=== PATIENT | male | born 1990 | race Caucasian/White ===

== ENCOUNTER 2017-10-27 18:00 | Emergency (ER) | payer OTHER ==
[~2017-10-27 18:00] MED LIST: KEFLEX500 MG PO; MOTRIN800 MG PO; NKHM; PREDNICOT20 MG PO; TOBRADEX 0.1%-0.5 ML OPH; ZITHROMAX Z PA250 MG PO
== END 2017-10-27 18:28 | disposition home or self-care (01) ==
LOC: ED 18:00
DX: L98.8 Other specified disorders of the skin and subcutaneous tissue (principal)

== ENCOUNTER 2018-07-31 15:17 | Emergency (ER) | payer OTHER ==
[~2018-07-31] VITALS: Ht 187.9 cm; Wt 136.1 kg
== END 2018-07-31 17:37 | disposition home or self-care (01) ==
LOC: ED 15:17
DX: S39.012A Strain of muscle, fascia and tendon of lower back, initial encounter (principal); M62.830 Muscle spasm of back; Z91.030 Bee allergy status; X58.XXXA Exposure to other specified factors, initial encounter; Y93.89 Activity, other specified; Y92.89 Other specified places as the place of occurrence of the external cause; Y99.8 Other external cause status

== ENCOUNTER 2021-04-12 18:29 | Emergency (ER) | payer SELFPAY ==
[~2021-04-12] VITALS: Wt 87.1 kg
[2021-04-12 18:56] LABS: BASO % 0.3 % (0.0-1.0); EOS % 0.1 % (1.0-4.0); HEMATOCRIT 44.7 % (42.0-52.0); LYMPH # 1.2 10*3/uL (1.3-4.4); MEAN CORPUSCULAR HGB 29.4 pg (27.0-31.0); MEAN CORPUSCULAR HGB CONC 33.8 g/dl (33.0-37.0); MEAN PLATELET VOLUME 9.5 fl (9.6-12.3); MONO # 0.4 10*3/uL (0.1-1.0); MONO % 5.5 % (3.0-9.0); NEUT # 5.1 10*3/uL (2.3-7.9); NEUT % 75.8 % (47.0-73.0); PLATELET COUNT AUTOMATED 329 10*3/uL (130-400); RED BLOOD COUNT 5.14 10*6/uL (4.50-5.90); RED CELL DISTRI WIDTH 12.5 % (0-14.5); WHITE BLOOD COUNT 6.7 10*3/uL (4.8-10.8)
[2021-04-12 19:20] LABS: ALBUMIN 4.8 gm/dl (3.1-4.5); ALKALINE PHOSPHATASE 54 U/L (45-117); BUN 11 mg/dl (7-24); CHLORIDE 108 mmol/L (98-107); CREATININE 0.94 mg/dL (0.70-1.30); LIPASE 106 U/L (73-393); SGOT/AST 10 IU/L (3-35); SGPT/ALT 19 U/L (12-78); SODIUM 142 mmol/L (136-145); TOTAL PROTEIN 8.3 gm/dL (6.4-8.2)
== END 2021-04-12 19:40 | disposition home or self-care (01) ==
LOC: ED 18:29
PROVIDERS: Physician Assistant
DX: R63.4 Abnormal weight loss (principal); R53.83 Other fatigue; K62.89 Other specified diseases of anus and rectum

== ENCOUNTER → 2022-02-13 | Outpatient (CLI) | payer SELFPAY ==
[~2022-02-13] MED LIST changes: +NAPROSYN500 MG PO
== END | disposition home or self-care (01) ==
LOC: RAD 11:10
PROVIDERS: ATTEND Family Medicine
DX: R20.2 Paresthesia of skin (principal)

== ENCOUNTER 2022-02-17 21:08 | Emergency (ER) | payer OTHER ==
[~2022-02-17 21:08] MED LIST changes: -NAPROSYN500 MG PO
[2022-02-17] MEDS ORDERED: NAPROSYN500 MG PO (23:10)
== END 2022-02-17 23:28 | disposition home or self-care (01) ==
LOC: ED 21:08
DX: S93.401A Sprain of unspecified ligament of right ankle, initial encounter (principal); X50.1XXA Overexertion from prolonged static or awkward postures, initial encounter; Y93.89 Activity, other specified; Y92.89 Other specified places as the place of occurrence of the external cause; Y99.8 Other external cause status

== ENCOUNTER 2023-06-04 08:40 | Emergency (ER) | payer SELFPAY ==
[~2023-06-04] VITALS: Ht 187.9 cm; Wt 113.4 kg
[~2023-06-04 08:40] MED LIST changes: +NAPROSYN500 MG PO
== END 2023-06-04 10:39 | disposition home or self-care (01) ==
LOC: ED 08:40
DX: S63.91XA Sprain of unspecified part of right wrist and hand, initial encounter (principal); W01.0XXA Fall on same level from slipping, tripping and stumbling without subsequent striking against object, initial encounter; Y93.89 Activity, other specified; Y92.89 Other specified places as the place of occurrence of the external cause; Y99.8 Other external cause status